=== PATIENT | male | born 1980 | race Caucasian/White ===

== ENCOUNTER 2016-05-20 17:39 | Emergency (ER) | payer SELFPAY ==
[~2016-05-20] VITALS: Ht 182.9 cm; Wt 90.5 kg
[~2016-05-20 17:39] MED LIST: OXYC1TAB24 PO; PRE20 PO
[2016-05-20 17:49] VITALS: BP 120/70; PULSE 83; RESP 15; O2SAT 96
--- NOTE | 2016-05-20 18:08 | ED.REPORT ---
HPI-Rash / Abscess Date of Service May 20, 2016 ED Provider: Vik Cota DO Pt is a 35 y.o. male with a hx of asthma who presents to the ED c/o worsening lip swelling and pain onset 1 week ago. Pt reports associated tongue pain and swelling. He denies any mechanism of injury or a hx of cold sores. He states that he thinks it began as a pimple. Nursing Notes Stated Complaint: LIP SWOLLEN Chief Complaint: Skin Rash/Abscess Nursing Notes Reviewed: Yes Scheduled Prednisone (PredniSONE) 20 Mg Tablet 60 MG PO DAILY Scheduled PRN oxyCODONE-Acetaminophen 5-325 mg (oxyCODONE-Acetaminophen 5-325 mg) 1 Each Tablet 1-2 TAB PO Q6H PRN PRN For Pain General Time Seen by MD: 18:08 Chief Complaint Tender/swollen area (Lip) Hx Obtained From: Patient Arrived By: Walk-in Onset Occurred: 1 week ago Symptom Duration: Since onset Location: : Head/face (Lip and tongue) Quality: Painful Severity: Current: Moderate Recent Healthcare: No recent doctor visit, No recent hospitalization Past Medical History Past Medical History Reports: Asthma Past Surgical History jaw fracture in '02 Smoking History Current Every Day Smoker Social History Alcohol Use: 1-3 per week Drug Use: In recovery, Meth, THC Occupation lives with and 5 week old baby Ambulatory Status Independent Review of Systems Lip pain Lip swelling Constitutional: Denies: Chills, Fever Ears / Nose / Throat: Reports: Tongue pain, Tongue swelling GI: Denies: Nausea, Vomiting Allergy / Immune: Denies: Allergic reaction Complete sys rev & neg: except as marked. Physical Exam Initial Vital Signs Vital Signs (First) Date Time Temp Pulse Resp B/P Pulse Ox O2 Delivery O2 Flow Rate FiO2 05/20/16 17:49 36.5 83 15 120/70 96 Room Air Initial VS: Reviewed Head / Eyes: Atraumatic, Normocephalic Respiratory: Breath sounds normal, No respiratory distress Cardiovascular: Regular rate & rhythm, Intact distal pulses Abdomen / GI: No distention Extremities: Vascular intact, Neuro intact Neurologic: Alert, Oriented, Nonfocal Psychiatric: Mood/affect normal, Behavior normal, Normal thought content General/Constitutional: Awake, Alert, No acute distress, Well appearing, Well developed, Well hydrated, Well nourished, Not toxic appearing Skin: Color NL, Warm, Dry, Intact ENT: Atraumatic, Airway patent Mouth: Positive: Lip swelling present (without abscess), Negative: Tongue abnormal Lip tender to palpation Re-Eval/Medical Decision Med Decision/Clinical Course I suspect this is a staph or strep infection. Does not look cold sore. No signs of an abscess. No signs of angioedema or allergic reaction. The fact that is warm and tender argues more for infection. As such I will place him on antibiotics and have close outpatient follow-up. Source of Hx: Old records Re-Evaluation/Progress : Time of Eval: 19:16 Re-Evaluation/Progress Note: Physical exam performed. Discussed plan for discharge, pt udnerstands and agrees with plan. Counseled Regarding: Diagnosis, Need for follow-up, When/why to return to ED Discharge & Departure Impression: Primary Impression: Tongue swelling Discharge Condition All VS Reviewed: Yes Condition: Improved Patient Instructions: Abscess (ED) Additional Instructions: Keep warm compresses on your lip for the next 3 days. Bactrim and Augmentin twice daily for the next 5 days. You can take 1 Kulm every 6 hours as needed for pain. Do not drink, drive, or consume acetaminophen when taking Kulm. You may be developing an abscess and will need to return to have it drained. Follow up in 3-5 days with [facility] or [facility]. Return if you develop a fever, have difficulty breathing or swallowing, or any new or worsening symptoms. Referrals: NOPCP (PCP) Michael Ruff MD [facility] Bry Attestation Portions of this note were transcribed by Sumi Zuñiga. I, Dr. Cota personally performed the history, physical exam and medical decision-making; I reviewed and confirmed the accuracy of the information in the transcribed note. Signed by : Bry Stearns, 05/20/16 and 192. copies to: Michael Ruff MD; [facility] Vik Cota DO May 20, 2016 18:08 SUMI ZUÑIGA May 20, 2016 18:17
[2016-05-20] MEDS ORDERED: Trimethoprim-Sulfa 160 mg-800 mg Tablet PO ONE (19:15)
[2016-05-20] MEDS ORDERED: HYDROcodone-APAP 5-325 mg Tablet PO ONE (19:15)
[2016-05-20] MEDS ORDERED: Amoxicillin-Clav 875-125 mg Tablet PO ONE (19:15)
[2016-05-20 19:37] VITALS: PULSE 83; RESP 15; O2SAT 96
== END 2016-05-20 19:38 ==
LOC: SED 17:39
DX: R22.0 Localized swelling, mass and lump, head (principal); J45.909 Unspecified asthma, uncomplicated; F17.200 Nicotine dependence, unspecified, uncomplicated

== ENCOUNTER 2016-05-25 21:36 | Emergency (ER) | payer SELFPAY ==
[~2016-05-25] VITALS: Ht 180.3 cm; Wt 90.9 kg
[2016-05-25 21:41] VITALS: BP 115/97; PULSE 80; RESP 16; O2SAT 98
--- NOTE | 2016-05-25 22:08 | ED.REPORT ---
HPI-Rash / Abscess Date of Service May 25, 2016 ED Provider: Dr. Cota Pt is a healthy 35 y/o male presenting to the ED for a recheck of his lip infection. The patient was seen by me on May 20 and diagnosed with lip cellulitis and prescribed Augmentin and Bactrim. He was asked to be seen for re- evaluation this week. He denies fever, chills, N/V/D, increase in swelling of lip, throat swelling. Nursing Notes Stated Complaint: SWOLLEN LIP Chief Complaint: General Complaint Nursing Notes Reviewed: Yes Allergies: Coded Allergies: No Known Allergies (Unverified , 05/25/16) Scheduled Prednisone (PredniSONE) 20 Mg Tablet 60 MG PO DAILY Scheduled PRN oxyCODONE-Acetaminophen 5-325 mg (oxyCODONE-Acetaminophen 5-325 mg) 1 Each Tablet 1-2 TAB PO Q6H PRN PRN For Pain General Time Seen by MD: 22:08 Chief Complaint Rash Hx Obtained From: Patient Arrived By: Walk-in Onset Occurred: 1 week ago Symptom Duration: Since onset Severity: Current: No pain currently Severity: Maximum: Mild Recent Healthcare: Recent doctor visit, Previous diagnosis Similar Sx Previous: Yes Past Medical History Past Medical History Reports: Asthma Past Surgical History jaw fracture in '02 Smoking History Current Every Day Smoker Social History Alcohol Use: 1-3 per week Drug Use: In recovery, Meth, THC Occupation lives with and 5 week old baby Ambulatory Status Independent Review of Systems Review of Systems Note: + lip pain Constitutional: Denies: Chills, Fatigue, Fever Respiratory: Denies: Non-productive cough, Shortness of breath Cardiovascular: Denies: Chest pain, Dyspnea on exertion GI: Denies: Abdominal pain, Nausea, Vomiting Complete sys rev & neg: except as marked. Physical Exam Initial Vital Signs Vital Signs (First) Date Time Temp Pulse Resp B/P Pulse Ox O2 Delivery O2 Flow Rate FiO2 05/25/16 21:41 36.6 80 16 115/97 98 Room Air Initial VS: Reviewed, Vital signs normal Head / Eyes: Atraumatic, Normocephalic, PERRL Neck: Supple, Full range of motion Respiratory: Breath sounds normal, Clear to auscultation, No respiratory distress Cardiovascular: Regular rate & rhythm, Heart sounds normal, Intact distal pulses Abdomen / GI: Soft, No distention Extremities: Vascular intact, Neuro intact, No swelling, No tenderness Neurologic: Alert, Oriented, Nonfocal Psychiatric: Mood/affect normal, Behavior normal, Normal thought content General/Constitutional: Awake, Alert, No acute distress, Well appearing, Cooperative, Not toxic appearing Skin: Atraumatic, Warm, Dry ENT: Atraumatic, Airway patent, Mucous membranes moist, Pharynx NL Swelling decreased by 70-80%. Still appears infected and mildly tender. Re-Eval/Medical Decision Re-Evaluation/Progress : Time of Eval: 22:27 Re-Evaluation/Progress Note: Pt rechecked. Informed pt of plan for treatment. Pt understands and agrees with plan for treatment. F/U instructions and RTER warnings given. All questions addressed. Counseled Regarding: Diagnosis, Need for follow-up, When/why to return to ED Discharge & Departure Impression: Primary Impression: Cellulitis of lip Disposition: Home Discharge Condition All VS Reviewed: Yes Condition: Stable Patient Instructions: Cellulitis (ED) Additional Instructions: Take Bactrim and Augmentin twice daily for 5 more days. See the referral ear nose and throat physician next week. It appears to be healing well and more antibiotics should resolve it. Take 1-2 Percocet every 6 hours as needed for severe pain. Do not drive, drink alcohol, or consume acetaminophen while taking Percocet. Return to the emergency department for any new or worsening symptoms. Referrals: Michael Ruff MD Attestation Portions of this note were transcribed by Marcelino Stringer. I, Dr. Cota personally performed the history, physical exam and medical decision-making; I reviewed and confirmed the accuracy of the information in the transcribed note. Signed by Bry Biswas, 05/25/16 - 1015 Vik Cota DO May 25, 2016 22:08 MARCELINO STRINGER May 25, 2016 22:19
[2016-05-25] MEDS ORDERED: _oxyCODONE/APAP 5-325 mg Tablet PO PRN (22:15)
[2016-05-25 22:54] VITALS: BP 120/92; PULSE 78; RESP 16; O2SAT 98
== END 2016-05-25 22:55 | disposition home or self-care (01) ==
LOC: SED 21:36
DX: K13.0 Diseases of lips (principal); J45.909 Unspecified asthma, uncomplicated; F17.200 Nicotine dependence, unspecified, uncomplicated